=== PATIENT | female | born 1995 | race Caucasian/White ===

== ENCOUNTER → 2025-02-10 15:42 | Outpatient (BNVA) | payer MEDICAID, SELFPAY | PROVIDERS: Visit Provider Orthopaedic Surgery | DX: S52.592A Other fractures of lower end of left radius, initial encounter for closed fracture (principal); X58.XXXA Exposure to other specified factors, initial encounter | CPT/HCPCS: 36415; 73110; 80053; 81001; 85025; 99204 ==

== ENCOUNTER 2025-02-11 08:16 | Outpatient (CLI) | payer MEDICAID, SELFPAY | END 2025-02-11 08:17 | disposition home or self-care (01) | LOC: SPT 08:30 | PROVIDERS: Visit Provider Orthopaedic Surgery | DX: Z46.89 Encounter for fitting and adjustment of other specified devices (principal); S69.92XD Unspecified injury of left wrist, hand and finger(s), subsequent encounter; X58.XXXD Exposure to other specified factors, subsequent encounter | CPT/HCPCS: L3908 ==

== ENCOUNTER 2025-02-14 05:42 | Day surgery (SDC) | payer MEDICAID, BC, SELFPAY ==
[2025-02-14] VITALS (9 sets, daily range): BP systolic 83–127; BP diastolic 47–78; PULSE 55–83; RESP 16–18; TEMP 36.1–36.6; O2SAT 96–100
[2025-02-14] MEDS: sodium chloride 0.9% 1,000 ML 30 ML IV (07:39)
--- NOTE | 2025-02-14 07:44 | P.ANESASSM_ITS ---
Pre-Anesthetic Assessment Height/Weight: Height 5 ft 3 in Weight 100 lb Temp Pulse Resp BP Pulse Ox O2 Del Method 97.8 F 72 16 127/78 100 Room Air 02/14/25 06:26 02/14/25 06:26 02/14/25 06:26 02/14/25 06:26 02/14/25 06:26 02/14/25 06:26 Preop Diagnosis: Left distal radius fracture Operation Date: 02/14/25 08:05 Proposed Procedures p ORIF Distal Radius(Left) - Mike Negron, DO Was Beta Mario taken within 24 hours: N/A Was Clonidine taken within 24 hours: N/A Last intake: Intake Last Liquid Date 02/13/25 Last Liquid Time 21:00 Last Solid Date 02/13/25 Last Solid Time 21:00 Social No alcohol and No tobacco Exam alert, oriented x 3, clear to auscultation bilaterally and regular rate & rhythm Airway Submandibular: within normal limits Cervical ROM: within normal limits Mallampati: Class II Dentition: full Anesthetic Plan ASA status: 1 Anesthesia: General and Regional (specify below) Other: No prior anesthesia history NPO since yesterday evening Denies any cardiac or pulmonary issue METs greater than 4 Plan for general anesthesia with preop nerve block Medications/Allergies Home Medications ?Medication ?Instructions ?Recorded ?Confirmed ?Last Taken ?Type hydrocodone 5 mg-acetaminophen 325 1 tab PO Q6H PRN Pa in, Mild 02/10/25 02/14/25 02/12/25 History mg tablet left cockup splint #1 ea 02/10/25 02/10/25 Unkn own Rx Allergies Allergy/AdvReac Type Severity Reaction Status Date / Time No Known Allergies Allergy Verified 02/11/25 10:43 Current Medications Generic Name Dose Route Start Last Admin Trade Name Freq PRN Reason Stop Dose Admin Sodium Chloride 1,000 mls @ 30 mls/hr 02/14/25 06:15 02/14/25 07:39 Sodium Chloride 0.9% IV 02/15/25 06:14 30 mls/hr .Q24H ANTHONY Administration PFSH Anesthesia Social History Smoking and tobacco/nicotine status: never used tobacco/nicotine Female Reproductive History Date of last menstrual period: 01/16/25
--- NOTE | 2025-02-14 07:48 | W.PM.OPSUD ---
Surgery/Procedure H&P Update DATE OF PROCEDURE: February 14, 2025 DATE H&P PERFORMED: 02/10/25 H&P UPDATE INFORMATION: I have reviewed H&P completed within last 30 days, I have examined patient prior to procedure and No changes to prior documentation PREOP DIAGNOSIS: Left distal radius fracture PLANNED PROCEDURE: Operation Date: 02/14/25 08:05 Proposed Procedures p ORIF Distal Radius(Left) - Mike Negron DO
--- NOTE | 2025-02-14 08:02 | ANES.PROC ---
Anesthesia Procedures Procedure/Date: 02/14/25 Nerve Block ^: Nerve Block 1: Main Anesthesia: other Time Out Performed: Yes Consent: requested by attending/covering physician and from patient Nerve block location: supraclavicular Anesthesia monitors applied: pulse oximetry, EKG, BP cuff and oxygen Nerve block position: supine Anesthetic Used: ropivicaine 0.5% Amount of anesthesia used (mL): 30 Ultrasound used to: recognize landmarks Nerve Stimulator Used?: Yes Interscalene/Femoral BLK: other needle (pjunk 4inch) Injection: neg aspiration of heme Patient Tolerated Procedure: well Complications: none Additional Comments: decadron 4mg added to block
[2025-02-14] MEDS: ceFAZolin 2,000 mg SDV 2000 MG IVP (08:13)
[2025-02-14 09:11] LABS: OR HCG Qualitative Urine Negative (Negative)
--- NOTE | 2025-02-14 09:21 | P.OP_ITS ---
Operative Report Date of procedure: February 14, 2025 Pre-op diagnosis: 1. left intra-articular distal radius fracture 3 pieces. Post-op diagnosis: same Procedure done: Left open reduction internal fixation of distal radius with 3 pieces. Surgeon: Mike Negron DO Estimated blood loss (mL): 5 Procedure: Left open reduction internal fixation of distal radius with 3 pieces. Patient brought the op suite after undergoing Anesthesia patient placed in the supine position. All areas impingement well-padded. Skin incision was made over the volar surface of the wrist. The FCR and radial artery were identified. The pronator teres was reflected ulnarly. The fracture was identified. Fractu re is reduced and a volar Arthrex distal radius plate was placed. This was used to buttress the fracture down. 3 screws were placed into the fracture fragment of the styloid and intra-articular piece. 1 screw was placed distal and 2 screws proximally. AP lateral fluoroscopy showed the fracture and hardware reduced. In good position. Wounds were irrigated closed with Vicryl and Monocryl suture. Sterile dressings were applied patient was placed in a volar splint and transferred to the PACU in stable addition.
--- NOTE | 2025-02-14 10:20 | ANE.PACU2 ---
Inpatient post-anesthesia follow up: Airway intact: Yes Vital signs: Temperature 97 F Pulse Rate 65 Respiratory Rate 18 Blood Pressure 103/62 Pulse Oximetry 98 Oxygen Delivery Me thod Room Air Oxygen Flow Rate 6 Fraction of Inspir ed Oxygen Hydration adequate: Yes Nausea and vomiting: No Pain level: 1 Mental status: Baseline
--- NOTE | 2025-02-14 10:49 | XR_ITS ---
WS: [id number] XR wrist LT 2V [id number] REASON FOR EXAM: orif , or pic FINDINGS: Volar plate and screw fixation of distal radial metaphyseal fracture which extends into the joint space. Surgical appliances are intact and in proper position and alignment. Fracture fragments are in good apposition and alignment. XR/XR wrist LT 2V [id number] IMPRESSION: Left wrist fracture with internal fixation as above.
== END 2025-02-14 10:20 | disposition home or self-care (01) ==
PROVIDERS: Student in an Organized Health Care Education/Training Program; Visit Provider Orthopaedic Surgery
PROC: (CPT 25609; principal; 2025-02-14 07:55)
DX: S52.592A Other fractures of lower end of left radius, initial encounter for closed fracture (principal); V89.2XXA Person injured in unspecified motor-vehicle accident, traffic, initial encounter
CPT/HCPCS: 25609; 73100; 76000; 81025; C1713; J0690; J1100; J2250; J2405; J2704; J3010; J7030; J9999

== ENCOUNTER → 2025-03-03 13:55 | Outpatient (BNVA) | payer BC, MEDICAID, SELFPAY | PROVIDERS: Visit Provider Orthopaedic Surgery | DX: Z98.890 Other specified postprocedural states (principal); Z46.89 Encounter for fitting and adjustment of other specified devices | CPT/HCPCS: 73110 ==